=== PATIENT | female | born 1980 | race Hispanic/Latino ===

== ENCOUNTER 2021-12-20 13:29 | Emergency (ER) | payer OTHER ==
[~2021-12-20] VITALS: Ht 160 cm; Wt 99.8 kg
[2021-12-20 15:50] LABS: BASOPHILS % (AUTO) 0.3 % (0.0-5.0); EOSINOPHILS % (AUTO) 2.1 % (0.0-8.0); HEMATOCRIT 46.9 % (36-48); LYMPHOCYTES % (AUTO) 20.5 % (21.0-51.0); MEAN CORPUSCULAR HEMOGLOBIN 27.3 pg (27.0-33.0); MEAN CORPUSCULAR HGB CONC 32.4 g/dL (32.0-36.0); MEAN CORPUSCULAR VOLUME 84.2 fL (79-99); MONOCYTES % (AUTO) 5.7 % (3.0-13.0); NEUTROPHILS % (AUTO) 71.2 % (40.0-77.0); PLATELET COUNT (AUTO) 249 K/uL (130-400); RED BLOOD CELL COUNT(AUTO) 5.57 MIL/uL (4.00-5.50); RED CELL DISTRIBUTION WIDTH 13.2 % (11.0-15.5); WHITE BLOOD COUNT (AUTO) 8.7 K/uL (4.8-10.8)
[2021-12-20] MEDS ORDERED: 0.9%NACL 1000ML 1,000 ML IV ONE (16:00)
[2021-12-20] MEDS ORDERED: ONDANSETRON 4MG INJ IVP ONE (16:00)
[2021-12-20 16:01] LABS: CREATININE 0.9 mg/dL (0.5-1.5); POTASSIUM 3.7 mmol/L (3.5-5.1)
[2021-12-20 16:03] LABS: APPEARANCE,URINE Clear (CLEAR); BILIRUBIN,URINE Negative (NEGATIVE); COLOR,URINE Dark Yellow (YELLOW); GLUCOSE, URINE (UA) Negative (NEGATIVE); KETONES,URINE 40 mg/dL (NEGATIVE); LEUKOCYTE ESTERASE ,URINE Trace (NEGATIVE); NITRATE,URINE Negative (NEGATIVE); OCCULT BLOOD,URINE Nonhemolyzed Trace (NEGATIVE); PH,URINE 5.5 (5.0-8.0); PROTEIN,URINE Trace mg/dL (NEGATIVE)
[2021-12-20 16:05] LABS: BILIRUBIN,TOTAL 0.7 mg/dL (0.2-1.0); TOTAL PROTEIN, SERUM 7.6 g/dL (6.0-8.3)
[2021-12-20 16:08] LABS: HCG,QUAL RESULT NEGATIVE (NEGATIVE)
[2021-12-20 16:36] LABS: BACTERIA,URINE Moderate /HPF (None Seen); MUCUS,URINE Few LPF (None Seen); SQUAMOUS EPITHELIAL CELL,UR Moderate /HPF (0-2)
[2021-12-20] MEDS ORDERED: BENZONATATE 100 MG CAPSULE PO SCH (17:00)
[2021-12-20] MEDS ORDERED: KETOROLAC 15MG/ML VIAL (15MG/ML) IV ONE (17:00)
[2021-12-20 17:21] VITALS: BP 117/77
[2021-12-20] MEDS ORDERED: BENZ-39 PO (17:34)
[2021-12-20] MEDS ORDERED: CYCL10TA16 PO (17:34)
[2021-12-20] MEDS ORDERED: ALBU8.5H8 IH (17:34)
== END 2021-12-20 17:54 | disposition home or self-care (01) ==
LOC: EDH 13:29
DX: S16.1XXA Strain of muscle, fascia and tendon at neck level, initial encounter (principal); J40 Bronchitis, not specified as acute or chronic; Z20.822 Contact with and (suspected) exposure to COVID-19; Z79.1 Long term (current) use of non-steroidal anti-inflammatories (NSAID); X58.XXXA Exposure to other specified factors, initial encounter; Y93.89 Activity, other specified; Y92.89 Other specified places as the place of occurrence of the external cause; Y99.8 Other external cause status
CPT/HCPCS: 36415; 71045; 80053; 81001; 81025; 85025; 87088; 87635; 87804 ×2; 96361; 96374; 96375; 99284; C9803; J1885; J2405; J7030

== ENCOUNTER 2022-08-10 18:45 | Emergency (ER) | payer SELFPAY ==
[~2022-08-10] VITALS: Ht 160 cm; Wt 94.3 kg
[~2022-08-10 18:45] MED LIST: ALBU8.5H8 IH; BENZ-39 PO; CYCL10TA16 PO
[2022-08-10 21:11] VITALS: BP 115/72
[2022-08-10] MEDS ORDERED: ACETAMINOPHEN 325 MG TAB PO ONE (22:00)
[2022-08-10] MEDS ORDERED: IBUPROFEN 600 MG TABLET PO ONE (22:00)
[2022-08-10] MEDS ORDERED: NIRM1TAB PO (23:41)
[2022-08-10] MEDS ORDERED: PSEU120T62 PO (23:41)
[2022-08-10] MEDS ORDERED: PHEN118L19 PO (23:41)
[2022-08-10] MEDS ORDERED: IBUP-2070 PO (23:41)
== END 2022-08-10 23:57 | disposition home or self-care (01) ==
LOC: EDH 18:45
DX: U07.1 COVID-19 (principal); Z79.1 Long term (current) use of non-steroidal anti-inflammatories (NSAID)
CPT/HCPCS: 99284; 87635; 87880; 87804 ×2; C9803